=== PATIENT | male | born 1955 | race African-American/Black ===

== ENCOUNTER 2019-11-01 08:53 | Observation (INO) ==
[2019-11-01 09:57] LABS: Apearance,Urine CLEAR (Clear); Bilirubin,Urine Negative (Negative); Blood, Urine Negative (Negative); Glucose,Urine (UA) Negative (Negative); Hyaline Casts,Urine 1 /LPF (0-3); Ketones,Urine Negative (Negative); Mucus,Urine Occasional /LPF (Occasional); Nitrite,Urine Negative (Negative); Protein,Urine Negative; RBC,Urine 1 /HPF (0-4); Urine Color Yellow (Yellow); WBC,Urine <1 /HPF (0-6)
[2019-11-01 10:01] LABS: Barbiturates Screen,Urine Negative (Negative); Benzodiazepines Screen,Urine Negative (Negative); Cannabinoid Screen,Urine Negative (Negative); Opiate Screen,Urine Negative (Negative); Phencyclidine Screen,Urine Negative (Negative)
[2019-11-01 10:15] LABS: Basophils % 0.6 % (0.0-0.8); Eosinophils # 0.1 10*3/uL (0.0-0.87); Eosinophils % 0.8 % (0.00-10.9); Hematocrit 37.6 VOL% (42.0-52.0); Hemoglobin 11.6 GM/DL (14.0-18.0); Immature Granulocytes % 0.5 %; Immature Granulocytes Absolute 0.03 #; Lymphocytes # 1.4 10*3/uL (1.4-4.0); Lymphocytes % 21.3 % (21.2-54.2); Mean Corpuscular HGB Conc 30.9 GM/DL (32-36); Mean Corpuscular Volume 87.6 FL (87-102); Mean Platelet Volume 10.5 FL (9.6-12.0); Monocytes % 9.1 % (1.7-12.7); Neutrophils % 67.7 % (38.7-73.9); Platelet Count 283 T/CUMM (130-400); Red Blood Count 4.29 MC/CUMM (3.8-5.5); Red Cell Distribution Width 16.9 % (9.3-17.3); White Blood Count 6.6 T/CUMM (4-12)
[2019-11-01 10:30] LABS: Alanine Aminotransferase 19 U/L (16-61); Albumin 3.6 G/DL (3.4-5.0); Alkaline Phosphatase 82 U/L (45-117); Aspartate Amino Transferase 17 U/L (0-37); Bilirubin,Total < 0.39 MG/DL (0.2-1.0); Blood Urea Nitrogen 29 MG/DL (7-18); Calcium 9.3 MG/DL (8.5-10.1); Estimated Glom Filtration Rate 80 ML/MIN; Glucose 82 MG/DL (74-106); Osmolality,Calculated 277.8 MOS/KG (273-304); Total Protein 7.7 G/DL (6.4-8.3)
[2019-11-01] MEDS ORDERED: LEVOFLOXACIN INJ 750 MG in PREMIX 1 EACH IV STA (10:58)
[2019-11-01] MEDS ORDERED: hydrALAZINE 20 MG/1 ML VIAL IV PRN (12:06)
[2019-11-01] MEDS ORDERED: guaiFENesin/DM ER 600-30 MG TABLET PO PRN (12:06)
[2019-11-01] MEDS ORDERED: ONDANSETRON 4 MG/2 ML VIAL IV PRN (12:06)
[2019-11-01] MEDS ORDERED: ACETAMINOPHEN 325 MG TABLET PO PRN (12:06)
[2019-11-01] MEDS ORDERED: LACTULOSE 20 GM/30 ML UDCUP PO PRN (12:06)
[2019-11-01 12:34] LABS: Risk Ratio 1.92; VLDL CHOLESTEROL 17.8 MG/DL
[2019-11-01 12:41] LABS: Free T4 (Free Thyroxine) 1.06 NG/DL (0.76-1.46)
[2019-11-01] MEDS: ALBUTEROL 2.5 MG/3 ML NEB RESP TX SCH ×2 (13:19→19:32)
[2019-11-01] MEDS: ENOXAPARIN 40 MG/0.4 ML SYRINGE SUBCUT SCH (13:26)
[2019-11-02] MEDS: ALBUTEROL 2.5 MG/3 ML NEB RESP TX SCH ×4 (00:23→20:40)
[2019-11-02 06:11] LABS: Basophils % 0.7 % (0.0-0.8); Eosinophils # 0.1 10*3/uL (0.0-0.87); Eosinophils % 1.1 % (0.00-10.9); Hematocrit 34.1 VOL% (42.0-52.0); Hemoglobin 10.7 GM/DL (14.0-18.0); Immature Granulocytes % 0.5 %; Immature Granulocytes Absolute 0.03 #; Lymphocytes # 1.6 10*3/uL (1.4-4.0); Lymphocytes % 28.4 % (21.2-54.2); Mean Corpuscular HGB Conc 31.4 GM/DL (32-36); Mean Corpuscular Volume 85.9 FL (87-102); Mean Platelet Volume 11.1 FL (9.6-12.0); Neutrophils % 59.3 % (38.7-73.9); Platelet Count 288 T/CUMM (130-400); Red Blood Count 3.97 MC/CUMM (3.8-5.5); Red Cell Distribution Width 16.8 % (9.3-17.3); White Blood Count 5.5 T/CUMM (4-12)
[2019-11-02 06:34] LABS: Calcium 9.1 MG/DL (8.5-10.1); Osmolality,Calculated 279.8 MOS/KG (273-304)
[2019-11-02] MEDS: SODIUM CHLORIDE 0.9% 1,000 ML IV SCH ×2 (08:03→14:42)
[2019-11-02] MEDS: ENOXAPARIN 40 MG/0.4 ML SYRINGE SUBCUT SCH (14:42)
[2019-11-02] MEDS ORDERED: ATORVASTATIN 20 MG TABLET PO SCH (21:00)
[2019-11-03] MEDS: ALBUTEROL 2.5 MG/3 ML NEB RESP TX SCH ×3 (00:42→13:51)
[2019-11-03] MEDS: SODIUM CHLORIDE 0.9% 1,000 ML IV SCH (05:19)
[2019-11-03] MEDS ORDERED: ASPIRIN CHEW 81 MG TABLET PO SCH (09:00)
[2019-11-03 09:13] LABS: Basophils % 0.6 % (0.0-0.8); Eosinophils # 0.1 10*3/uL (0.0-0.87); Eosinophils % 1.1 % (0.00-10.9); Hematocrit 32.3 VOL% (42.0-52.0); Hemoglobin 9.8 GM/DL (14.0-18.0); Immature Granulocytes Absolute 0.06 #; Lymphocytes # 2.2 10*3/uL (1.4-4.0); Lymphocytes % 36.4 % (21.2-54.2); Mean Corpuscular HGB Conc 30.3 GM/DL (32-36); Mean Corpuscular Volume 88.7 FL (87-102); Mean Platelet Volume 10.6 FL (9.6-12.0); Monocytes % 11.9 % (1.7-12.7); Platelet Count 235 T/CUMM (130-400); Red Blood Count 3.64 MC/CUMM (3.8-5.5); Red Cell Distribution Width 16.9 % (9.3-17.3); White Blood Count 6.2 T/CUMM (4-12)
[2019-11-03] MEDS ORDERED: VANCOMYCIN INJ 1,000 MG in SODIUM CHLORIDE 0.9% 250 ML IV SCH (10:00)
[2019-11-03 12:13] VITALS: BP 123/52
[2019-11-03] MEDS: ENOXAPARIN 40 MG/0.4 ML SYRINGE SUBCUT SCH (12:51)
== END 2019-11-03 16:07 | disposition home or self-care (01) ==
LOC: N.EDINP 08:53 → N.ED 08:53 → SUATTDRO 12:06 → N.EDINP 14:07 → N.5E 14:21
PROVIDERS: ADMIT Internal Medicine; ATTEND Internal Medicine

== ENCOUNTER 2020-08-12 16:56 | Inpatient (IN) ==
[2020-08-12] MEDS ORDERED: SODIUM CHLORIDE 0.9% 1,000 ML IV STA (17:51)
[2020-08-12] MEDS ORDERED: PIPERACILLIN/TAZOBACTAM 3,375 MG in SODIUM CHLORIDE 0.9% 100 ML IV STA (18:40)
[2020-08-12 19:10] LABS: ABG Base Excess -6.3 MMOL/L (-2.5-2.5); ABG HCO3 19.3 MMOL/L (20-26); ABG Oxygen Saturation 98.7 % (95-100); ABG PCO2 35.7 MM HG (35-48); ABG PH 7.332 (7.35-7.45); ABG TCO2 16.9 MMOL/L (23-27); Allen Test Positive; Pt O2 Delivery Device Room Air
[2020-08-12 19:11] LABS: Basophils % 0.2 % (0.0-0.8); Hematocrit 39.2 VOL% (42.0-52.0); Hemoglobin 12.7 GM/DL (14.0-18.0); Immature Granulocytes % 0.5 %; Immature Granulocytes Absolute 0.03 #; Lymphocytes # 0.4 10*3/uL (1.4-4.0); Lymphocytes % 6.9 % (21.2-54.2); Mean Corpuscular HGB Conc 32.4 GM/DL (32-36); Mean Corpuscular Volume 80.7 FL (87-102); Monocytes % 3.7 % (1.7-12.7); NRBC # 0.12 10*3/uL; Neutrophils % 88.7 % (38.7-73.9); Platelet Count 97 T/CUMM (130-400); Red Blood Count 4.86 MC/CUMM (3.8-5.5); Red Cell Distribution Width 19.6 % (9.3-17.3); White Blood Count 6.2 T/CUMM (4-12)
[2020-08-12 19:22] LABS: INR 1.3; PT Patient Result 13.5 SECS (9.8-11.9)
[2020-08-12 19:35] LABS: Lymphocytes 11 % (20-55); Nucleated Red Blood Cells 1 (0-5); Segmented Neutrophils 85 % (50-85); Smudge Cells Few; Total Cells Counted 100
[2020-08-12 19:36] LABS: Albumin 2.6 G/DL (3.4-5.0); Bilirubin,Total 0.4 MG/DL (0.2-1.0); Calcium 8.7 MG/DL (8.5-10.1); Total Protein 6.5 G/DL (6.4-8.3)
[2020-08-12 19:37] LABS: Anisocytosis 1+; Burr Cells Few; Ovalocytes Few; Schistocytes Few
[2020-08-12 19:38] LABS: Microcytosis 1+; Platelet Estimate Decreased
[2020-08-12 19:47] LABS: CKMB % 6.5 %; Troponin I < 0.015 NG/ML (0.00-0.045)
[2020-08-12] MEDS ORDERED: DEXTROSE 50% 25 GM/50 ML VIAL IV STA (19:53)
[2020-08-12] MEDS ORDERED: DEXTROSE 50% 25 GM/50 ML SYRINGE IV ONE (19:57)
[2020-08-12 20:01] LABS: Bilirubin,Urine Negative (Negative); Blood, Urine Small mg/dL (Negative); Glucose,Urine (UA) Negative (Negative); Hyaline Casts,Urine 3 /LPF (0-3); Ketones,Urine Negative (Negative); Mucus,Urine Occasional /LPF (Occasional); Nitrite,Urine Negative (Negative); Protein,Urine Negative; RBC,Urine <1 /HPF (0-4); Squamous Epithelial Cell,Urine Occasional /HPF (0-10); Urine Appearance Slightly Hazy (Clear); Urine Color Yellow (Yellow); Urine Specific Gravity 1.015 (1.001-1.035); Urine Urobilinogen < 2.0 EU/DL (0.2-1.0); WBC,Urine <1 /HPF (0-6)
[2020-08-12 20:29] LABS: Barbiturates Screen,Urine Negative (Negative); Benzodiazepines Screen,Urine Negative (Negative); Cannabinoid Screen,Urine Negative (Negative); Opiate Screen,Urine Negative (Negative); Phencyclidine Screen,Urine Negative (Negative)
[2020-08-12] MEDS ORDERED: ACETAMINOPHEN 325 MG TABLET PO PRN (20:56)
[2020-08-12] MEDS ORDERED: ONDANSETRON 4 MG/2 ML VIAL IV PRN (20:56)
[2020-08-12] MEDS ORDERED: GLUCAGON 1 MG VIAL IM PRN (20:56)
[2020-08-12] MEDS: SODIUM CHLORIDE 0.9% 1,000 ML IV SCH ×2 (21:05→23:43)
[2020-08-13 06:19] LABS: Basophils # 0.1 10*3/uL (0.0-0.2); Basophils % 0.7 % (0.0-0.8); Hematocrit 34.8 VOL% (42.0-52.0); Hemoglobin 11.7 GM/DL (14.0-18.0); Immature Granulocytes % 0.1 %; Immature Granulocytes Absolute 0.01 #; Lymphocytes # 0.2 10*3/uL (1.4-4.0); Mean Corpuscular HGB Conc 33.6 GM/DL (32-36); Mean Corpuscular Volume 78.7 FL (87-102); Monocytes % 6.1 % (1.7-12.7); NRBC # 0.07 10*3/uL; Neutrophils % 91.1 % (38.7-73.9); Platelet Count 80 T/CUMM (130-400); Red Blood Count 4.42 MC/CUMM (3.8-5.5); Red Cell Distribution Width 19.3 % (9.3-17.3); White Blood Count 8.5 T/CUMM (4-12)
[2020-08-13 06:49] LABS: Albumin 2.4 G/DL (3.4-5.0); Calcium 8.3 MG/DL (8.5-10.1); Osmolality,Calculated 316.7 MOS/KG (273-304); Total Protein 6.1 G/DL (6.4-8.3)
[2020-08-13 07:17] LABS: Band Neutrophils 6 % (0-10); Hypochromasia 1+; Lymphocytes 2 % (20-55); Nucleated Red Blood Cells 2 (0-5); Segmented Neutrophils 88 % (50-85); Total Cells Counted 100
[2020-08-13 07:18] LABS: Acanthocytes Few; Microcytosis 1+; Ovalocytes Few; Target Cells Slight
[2020-08-13 07:19] LABS: Platelet Estimate Decreased
[2020-08-13] MEDS ORDERED: SODIUM POLYSTYRENE SULFATE 15 GM/60 ML BOTTLE PO ONE (07:26)
[2020-08-13] MEDS: SODIUM CHLORIDE 0.9% 1,000 ML IV SCH (10:12)
[2020-08-13] MEDS: DEXTROSE 50% 25 GM/50 ML VIAL IV PRN (10:12)
[2020-08-13 10:55] LABS: Hepatitis B Core IgM Quant 0.21 Index; Hepatitis B Surface Ag Quant < 0.10 Index; Hepatitis B Surface Ag Result Negative (Negative); Hepatitis C Virus Ab Quant 0.09 Index; Hepatitis C Virus Ab Result Negative (Negative)
[2020-08-13] MEDS ORDERED: TUBERCULIN SKIN TEST 0.1 ML SYRINGE INTRADERM ONE (12:08)
[2020-08-13] MEDS: HEPARIN 5,000 UNIT/1 ML VIAL SUBCUT SCH ×2 (17:43→21:13)
[2020-08-13] MEDS: cefTRIAXone 1,000 MG in SYRINGE 1 EACH IV SCH (17:45)
[2020-08-13] MEDS: SODIUM BICARB INJ 50 MEQ in DEXTROSE 5% NACL 0.22% 1,000 ML IV SCH (17:58)
[2020-08-13] MEDS ORDERED: FOLIC ACID 0.4 MG TABLET PO SCH (21:00)
[2020-08-13] MEDS: ASCORBIC ACID 500 MG TABLET NG SCH (21:12)
[2020-08-13] MEDS: FOLIC ACID 0.4 MG TABLET NG SCH (21:12)
[2020-08-14] MEDS: HEPARIN 5,000 UNIT/1 ML VIAL SUBCUT SCH ×3 (05:33→21:10)
[2020-08-14 05:59] LABS: CKMB % 1.2 %
[2020-08-14] MEDS: SODIUM BICARB INJ 50 MEQ in DEXTROSE 5% NACL 0.22% 1,000 ML IV SCH (06:30)
[2020-08-14 07:20] LABS: Alanine Aminotransferase 77 U/L (16-61); Alkaline Phosphatase 97 U/L (45-117); Aspartate Amino Transferase 288 U/L (0-37); Bilirubin,Total < 0.39 MG/DL (0.2-1.0); Blood Urea Nitrogen 79 MG/DL (7-18); Calcium 8.1 MG/DL (8.5-10.1); Estimated Glom Filtration Rate 33 ML/MIN; Glucose 130 MG/DL (74-106); Osmolality,Calculated 324.9 MOS/KG (273-304); Total Protein 5.9 G/DL (6.4-8.3)
[2020-08-14 08:00] LABS: Basophils % 0.1 % (0.0-0.8); Hematocrit 32.6 VOL% (42.0-52.0); Hemoglobin 10.9 GM/DL (14.0-18.0); Immature Granulocytes % 0.4 %; Immature Granulocytes Absolute 0.03 #; Lymphocytes # 0.5 10*3/uL (1.4-4.0); Lymphocytes % 6.4 % (21.2-54.2); Mean Corpuscular HGB Conc 33.4 GM/DL (32-36); Mean Corpuscular Volume 79.3 FL (87-102); Monocytes % 3.6 % (1.7-12.7); NRBC # 0.09 10*3/uL; Neutrophils % 89.5 % (38.7-73.9); Red Blood Count 4.11 MC/CUMM (3.8-5.5); Red Cell Distribution Width 19.6 % (9.3-17.3); White Blood Count 7.3 T/CUMM (4-12)
[2020-08-14 08:02] LABS: Platelet Count 64 T/CUMM (130-400)
[2020-08-14 08:50] LABS: Band Neutrophils 9 % (0-10); Lymphocytes 7 % (20-55); Nucleated Red Blood Cells 2 (0-5); Segmented Neutrophils 81 % (50-85); Total Cells Counted 100
[2020-08-14 08:51] LABS: Hypochromasia 2+; Microcytosis 1+; Ovalocytes Few
[2020-08-14 08:53] LABS: Acanthocytes Few
[2020-08-14 08:54] LABS: Platelet Estimate Decreased
[2020-08-14] MEDS: MULTIVITAMIN LIQUID (CENTRUM) 60 ML BOTTLE PO SCH (09:56)
[2020-08-14] MEDS: FOLIC ACID 0.4 MG TABLET NG SCH ×2 (09:56→21:18)
[2020-08-14] MEDS: THIAMINE 200 MG/2 ML VIAL IV SCH (09:56)
[2020-08-14] MEDS: ASCORBIC ACID 500 MG TABLET NG SCH ×2 (09:56→21:10)
[2020-08-14] MEDS: cefTRIAXone 1,000 MG in SYRINGE 1 EACH IV SCH (12:51)
[2020-08-15] MEDS: HEPARIN 5,000 UNIT/1 ML VIAL SUBCUT SCH (05:18)
[2020-08-15 06:01] LABS: Basophils % 0.2 % (0.0-0.8); Hematocrit 32.7 VOL% (42.0-52.0); Hemoglobin 10.5 GM/DL (14.0-18.0); Immature Granulocytes % 0.2 %; Immature Granulocytes Absolute 0.01 #; Lymphocytes # 0.6 10*3/uL (1.4-4.0); Lymphocytes % 11.9 % (21.2-54.2); Mean Corpuscular HGB Conc 32.1 GM/DL (32-36); Mean Corpuscular Volume 81.8 FL (87-102); Monocytes % 4.5 % (1.7-12.7); Neutrophils % 83.2 % (38.7-73.9); Red Cell Distribution Width 19.5 % (9.3-17.3); White Blood Count 5.4 T/CUMM (4-12)
[2020-08-15 06:06] LABS: Platelet Count 64 T/CUMM (130-400)
[2020-08-15 06:17] LABS: Albumin 1.8 G/DL (3.4-5.0); Bilirubin,Total 0.5 MG/DL (0.2-1.0); Calcium 8.3 MG/DL (8.5-10.1); Osmolality,Calculated 310.1 MOS/KG (273-304); Total Protein 5.8 G/DL (6.4-8.3)
[2020-08-15 06:35] LABS: Band Neutrophils 4 % (0-10); Hypochromasia Slight; Lymphocytes 7 % (20-55); Microcytosis Slight; Platelet Estimate Decreased; Segmented Neutrophils 87 % (50-85); Total Cells Counted 100
[2020-08-15 06:36] LABS: CKMB % 0.9 %
[2020-08-15] MEDS ORDERED: POTASSIUM CHLORIDE 20 MEQ/15 ML UDCUP NG ONE (07:18)
[2020-08-15] MEDS: SODIUM BICARB INJ 50 MEQ in DEXTROSE 5% NACL 0.22% 1,000 ML IV SCH ×2 (08:10→13:57)
[2020-08-15] MEDS: FOLIC ACID 0.4 MG TABLET NG SCH ×2 (11:08→23:18)
[2020-08-15] MEDS: ASCORBIC ACID 500 MG TABLET NG SCH ×2 (11:08→23:18)
[2020-08-15] MEDS: THIAMINE 200 MG/2 ML VIAL IV SCH (11:08)
[2020-08-15] MEDS: cefTRIAXone 1,000 MG in SYRINGE 1 EACH IV SCH (13:36)
[2020-08-15] MEDS: MULTIVITAMIN LIQUID (CENTRUM) 60 ML BOTTLE PO SCH (16:33)
[2020-08-16] MEDS: DEXTROSE 50% 25 GM/50 ML VIAL IV PRN ×4 (01:43→18:59)
[2020-08-16 05:45] LABS: Basophils % 0.2 % (0.0-0.8); Hematocrit 31.8 VOL% (42.0-52.0); Hemoglobin 9.9 GM/DL (14.0-18.0); Immature Granulocytes % 0.5 %; Immature Granulocytes Absolute 0.03 #; Lymphocytes # 0.5 10*3/uL (1.4-4.0); Lymphocytes % 7.4 % (21.2-54.2); Mean Corpuscular HGB Conc 31.1 GM/DL (32-36); Mean Corpuscular Volume 83.7 FL (87-102); NRBC # 0.02 10*3/uL; Neutrophils % 87.9 % (38.7-73.9); Red Cell Distribution Width 19.2 % (9.3-17.3); White Blood Count 6.5 T/CUMM (4-12)
[2020-08-16 05:50] LABS: Platelet Count 53 T/CUMM (130-400)
[2020-08-16 06:12] LABS: Band Neutrophils 1 % (0-10); Hypochromasia 1+; Lymphocytes 3 % (20-55); Microcytosis Slight; Ovalocytes Slight; Platelet Estimate Decreased; Segmented Neutrophils 94 % (50-85); Total Cells Counted 100
[2020-08-16 06:27] LABS: CKMB % 0.7 %
[2020-08-16 06:35] LABS: Albumin 1.8 G/DL (3.4-5.0); Bilirubin,Total 1.2 MG/DL (0.2-1.0); Calcium 8.8 MG/DL (8.5-10.1); Osmolality,Calculated 303.1 MOS/KG (273-304); Total Protein 6.2 G/DL (6.4-8.3)
[2020-08-16] MEDS: ASCORBIC ACID 500 MG TABLET NG SCH ×2 (11:10→20:57)
[2020-08-16] MEDS: THIAMINE 200 MG/2 ML VIAL IV SCH (11:11)
[2020-08-16] MEDS: MULTIVITAMIN LIQUID (CENTRUM) 60 ML BOTTLE PO SCH (11:11)
[2020-08-16] MEDS: FOLIC ACID 0.4 MG TABLET NG SCH ×2 (11:11→20:57)
[2020-08-16] MEDS: SODIUM BICARB INJ 50 MEQ in DEXTROSE 5% NACL 0.22% 1,000 ML IV SCH (11:17)
[2020-08-16] MEDS ORDERED: SODIUM CHLORIDE 0.9% 500 ML IV ONE (11:58)
[2020-08-16] MEDS: cefTRIAXone 1,000 MG in SYRINGE 1 EACH IV SCH (13:35)
[2020-08-16] MEDS ORDERED: ALBUMIN 5% 12.5 GM in PREMIX 1 EACH IV ONE (14:00)
[2020-08-16 14:13] LABS: ABG Base Excess 7.5 MMOL/L (-2.5-2.5); ABG HCO3 31.3 MMOL/L (20-26); ABG Oxygen Saturation 97.6 % (95-100); ABG PCO2 44.1 MM HG (35-48); ABG PH 7.468 (7.35-7.45); ABG TCO2 29.9 MMOL/L (23-27); Pt O2 Delivery Device Room Air
[2020-08-16] MEDS: MEGESTROL 400 MG/10 ML UDCUP PO SCH (20:57)
[2020-08-17 05:40] LABS: Basophils % 0.2 % (0.0-0.8); Eosinophils % 0.2 % (0.00-10.9); Hematocrit 28.2 VOL% (42.0-52.0); Hemoglobin 8.8 GM/DL (14.0-18.0); Immature Granulocytes % 0.2 %; Immature Granulocytes Absolute 0.01 #; Lymphocytes # 0.4 10*3/uL (1.4-4.0); Lymphocytes % 7.9 % (21.2-54.2); Mean Corpuscular HGB Conc 31.2 GM/DL (32-36); Mean Corpuscular Volume 84.2 FL (87-102); Monocytes % 0.6 % (1.7-12.7); Neutrophils % 90.9 % (38.7-73.9); Platelet Count 74 T/CUMM (130-400); Red Blood Count 3.35 MC/CUMM (3.8-5.5); Red Cell Distribution Width 19.4 % (9.3-17.3); White Blood Count 5.3 T/CUMM (4-12)
[2020-08-17] MEDS: DEXTROSE 50% 25 GM/50 ML VIAL IV PRN (05:43)
[2020-08-17 06:04] LABS: Band Neutrophils 5 % (0-10); Lymphocytes 7 % (20-55); Metamyelocytes 1 %; Segmented Neutrophils 86 % (50-85); Total Cells Counted 100
[2020-08-17 06:05] LABS: Hypochromasia 2+; Microcytosis 1+; Ovalocytes Slight
[2020-08-17 06:06] LABS: Platelet Estimate Decreased
[2020-08-17 06:07] LABS: Calcium 8.5 MG/DL (8.5-10.1); Osmolality,Calculated 298.3 MOS/KG (273-304)
[2020-08-17 06:21] LABS: CKMB % 0.6 %
[2020-08-17 06:59] LABS: Albumin 1.9 G/DL (3.4-5.0); Bilirubin,Total 2.2 MG/DL (0.2-1.0); Calcium 8.4 MG/DL (8.5-10.1); Osmolality,Calculated 298.3 MOS/KG (273-304); Total Protein 5.9 G/DL (6.4-8.3)
[2020-08-17 09:01] LABS: % Iron Saturation 13.2 % (18-50)
[2020-08-17] MEDS ORDERED: TUBERCULIN SKIN TEST 0.1 ML SYRINGE INTRADERM ONE (09:14)
[2020-08-17 09:29] LABS: Folate 11.5 NG/ML (5.4-24.0)
[2020-08-17] MEDS: THIAMINE 200 MG/2 ML VIAL IV SCH (09:30)
[2020-08-17] MEDS: ASCORBIC ACID 500 MG TABLET NG SCH ×2 (09:30→20:30)
[2020-08-17] MEDS: FOLIC ACID 0.4 MG TABLET NG SCH ×2 (09:30→20:30)
[2020-08-17] MEDS: MEGESTROL 400 MG/10 ML UDCUP PO SCH ×2 (09:30→20:30)
[2020-08-17] MEDS: MULTIVITAMIN LIQUID (CENTRUM) 60 ML BOTTLE PO SCH (09:31)
[2020-08-17] MEDS: cefTRIAXone 1,000 MG in SYRINGE 1 EACH IV SCH (12:20)
[2020-08-17] MEDS ORDERED: VANCOMYCIN INJ 1,000 MG in SODIUM CHLORIDE 0.9% 250 ML IV SCH (13:00)
[2020-08-17] MEDS ORDERED: FERRIC GLUCONATE COMPLEX 125 MG in SODIUM CHLORIDE 0.9% 100 ML IV SCH (14:00)
[2020-08-17] MEDS: VANCOMYCIN INJ 1,000 MG in SODIUM CHLORIDE 0.9% 250 ML IV SCH (14:27)
[2020-08-17] MEDS: SODIUM BICARB INJ 50 MEQ in DEXTROSE 5% NACL 0.22% 1,000 ML IV SCH (14:27)
[2020-08-17] MEDS: FERRIC GLUCONATE COMPLEX 125 MG in SODIUM CHLORIDE 0.9% 100 ML IV SCH (15:52)
[2020-08-17] MEDS: PIPERACILLIN/TAZOBACTAM 3,375 MG in SODIUM CHLORIDE 0.9% 100 ML IV SCH ×2 (16:03→23:02)
[2020-08-17] MEDS: POTASSIUM PHOS/SOD PHOS 250 MG TABLET PO SCH ×2 (17:49→20:34)
[2020-08-18] MEDS: VANCOMYCIN INJ 1,000 MG in SODIUM CHLORIDE 0.9% 250 ML IV SCH ×2 (03:20→19:02)
[2020-08-18] MEDS: PIPERACILLIN/TAZOBACTAM 3,375 MG in SODIUM CHLORIDE 0.9% 100 ML IV SCH ×2 (06:04→20:32)
[2020-08-18 07:11] LABS: Basophils % 0.1 % (0.0-0.8); Eosinophils % 0.1 % (0.00-10.9); Hematocrit 24.8 VOL% (42.0-52.0); Hemoglobin 7.8 GM/DL (14.0-18.0); Immature Granulocytes % 0.6 %; Immature Granulocytes Absolute 0.06 #; Lymphocytes # 0.7 10*3/uL (1.4-4.0); Mean Corpuscular HGB Conc 31.5 GM/DL (32-36); Mean Corpuscular Volume 83.8 FL (87-102); Monocytes % 4.6 % (1.7-12.7); Neutrophils % 87.6 % (38.7-73.9); Red Blood Count 2.96 MC/CUMM (3.8-5.5); Red Cell Distribution Width 18.8 % (9.3-17.3); White Blood Count 10.4 T/CUMM (4-12)
[2020-08-18 07:15] LABS: Platelet Count 72 T/CUMM (130-400)
[2020-08-18 07:29] LABS: Albumin 1.7 G/DL (3.4-5.0); Bilirubin,Total 0.5 MG/DL (0.2-1.0); Calcium 8.1 MG/DL (8.5-10.1); Osmolality,Calculated 290.7 MOS/KG (273-304); Total Protein 5.5 G/DL (6.4-8.3)
[2020-08-18 07:36] LABS: Atypical Lymphocytes Few; Hypochromasia 2+; Lymphocytes 8 % (20-55); Microcytosis 1+; Platelet Estimate Decreased; Segmented Neutrophils 86 % (50-85); Total Cells Counted 100
[2020-08-18 07:52] LABS: CKMB % 0.5 %
[2020-08-18] MEDS ORDERED: SODIUM CHLORIDE 0.9% 1,000 ML IV PRN (08:40)
[2020-08-18] MEDS ORDERED: BUPIVACAINE MPF 0.25% 30 ML VIAL ONE (09:08)
[2020-08-18] MEDS ORDERED: LIDOCAINE 1% 20 ML VIAL ONE (09:08)
[2020-08-18] MEDS ORDERED: fentaNYL 100 MCG/2 ML VIAL ONE (09:09)
[2020-08-18] MEDS ORDERED: LIDOCAINE 2% 5 ML VIAL ONE (09:10)
[2020-08-18] MEDS ORDERED: propofoL 200 MG/20 ML VIAL IV ONE (09:10)
[2020-08-18] MEDS ORDERED: DEXMEDETOMIDINE 200 MCG/2 ML VIAL ONE (09:29)
[2020-08-18] MEDS ORDERED: PHENYLEPHRINE 1 MG/10 ML SYRINGE IV ONE (09:44)
[2020-08-18] MEDS ORDERED: SEVOFLURANE 1 UNIT/15 MINUTE INH ONE ×3 (09:45→10:02)
[2020-08-18] MEDS ORDERED: SILVER SULFADIAZINE 1% CREAM 400 GM JAR TOP ONE (09:57)
[2020-08-18] MEDS: MULTIVITAMIN LIQUID (CENTRUM) 60 ML BOTTLE PO SCH (12:30)
[2020-08-18] MEDS: POTASSIUM PHOS/SOD PHOS 250 MG TABLET PO SCH ×4 (12:30→20:33)
[2020-08-18] MEDS: FOLIC ACID 0.4 MG TABLET NG SCH ×2 (12:30→20:33)
[2020-08-18] MEDS: MEGESTROL 400 MG/10 ML UDCUP PO SCH ×2 (12:31→20:34)
[2020-08-18] MEDS: ASCORBIC ACID 500 MG TABLET NG SCH ×2 (12:31→20:33)
[2020-08-18] MEDS: FERRIC GLUCONATE COMPLEX 125 MG in SODIUM CHLORIDE 0.9% 100 ML IV SCH (18:08)
[2020-08-18] MEDS: THIAMINE 200 MG/2 ML VIAL IV SCH (18:09)
[2020-08-18 19:06] LABS: Hematocrit 36.6 VOL% (42.0-52.0); Hemoglobin 11.8 GM/DL (14.0-18.0)
[2020-08-18 19:41] LABS: HIT Interpretation Negative (Negative)
[2020-08-19] MEDS: PIPERACILLIN/TAZOBACTAM 3,375 MG in SODIUM CHLORIDE 0.9% 100 ML IV SCH ×3 (04:44→22:18)
[2020-08-19 05:21] LABS: Basophils % 0.2 % (0.0-0.8); Eosinophils % 0.1 % (0.00-10.9); Hematocrit 27.6 VOL% (42.0-52.0); Immature Granulocytes % 1.9 %; Immature Granulocytes Absolute 0.32 #; Lymphocytes # 0.6 10*3/uL (1.4-4.0); Lymphocytes % 3.6 % (21.2-54.2); Mean Corpuscular Volume 82.1 FL (87-102); Mean Platelet Volume 11.8 FL (9.6-12.0); Monocytes % 3.5 % (1.7-12.7); Neutrophils % 90.7 % (38.7-73.9); Red Blood Count 3.36 MC/CUMM (3.8-5.5)
[2020-08-19 05:26] LABS: Hemoglobin 9.1 GM/DL (14.0-18.0); White Blood Count 16.5 T/CUMM (4-12)
[2020-08-19 05:27] LABS: Platelet Count 101 T/CUMM (130-400)
[2020-08-19 05:44] LABS: Band Neutrophils 10 % (0-10); Hypochromasia Slight; Lymphocytes 1 % (20-55); Microcytosis Slight; Platelet Estimate Adequate; Segmented Neutrophils 89 % (50-85); Total Cells Counted 100
[2020-08-19 05:45] LABS: Albumin 1.6 G/DL (3.4-5.0); Bilirubin,Total 0.6 MG/DL (0.2-1.0); Calcium 7.7 MG/DL (8.5-10.1); Osmolality,Calculated 295.4 MOS/KG (273-304); Total Protein 5.3 G/DL (6.4-8.3)
[2020-08-19] MEDS ORDERED: POTASSIUM CHLORIDE 20 MEQ TABLET PO ONE ×2 (07:45→13:00)
[2020-08-19] MEDS ORDERED: FERRIC GLUCONATE COMPLEX 125 MG in SODIUM CHLORIDE 0.9% 100 ML IV SCH (09:00)
[2020-08-19] MEDS: ASCORBIC ACID 500 MG TABLET NG SCH ×2 (09:37→20:43)
[2020-08-19] MEDS: MEGESTROL 400 MG/10 ML UDCUP PO SCH ×2 (09:37→20:43)
[2020-08-19] MEDS: FOLIC ACID 0.4 MG TABLET NG SCH ×2 (09:38→20:43)
[2020-08-19] MEDS: MULTIVITAMIN LIQUID (CENTRUM) 60 ML BOTTLE PO SCH (09:38)
[2020-08-19] MEDS: VANCOMYCIN INJ 1,000 MG in SODIUM CHLORIDE 0.9% 250 ML IV SCH ×2 (09:38→20:42)
[2020-08-19] MEDS: POTASSIUM PHOS/SOD PHOS 250 MG TABLET PO SCH ×4 (09:38→20:43)
[2020-08-19] MEDS: THIAMINE 200 MG/2 ML VIAL IV SCH (09:39)
[2020-08-19] MEDS: FERRIC GLUCONATE COMPLEX 125 MG in SODIUM CHLORIDE 0.9% 100 ML IV SCH (11:52)
[2020-08-20 04:53] LABS: Basophils % 0.1 % (0.0-0.8); Eosinophils % 0.1 % (0.00-10.9); Hematocrit 26.7 VOL% (42.0-52.0); Hemoglobin 8.9 GM/DL (14.0-18.0); Immature Granulocytes % 0.7 %; Immature Granulocytes Absolute 0.08 #; Lymphocytes # 0.6 10*3/uL (1.4-4.0); Lymphocytes % 5.8 % (21.2-54.2); Mean Corpuscular HGB Conc 33.3 GM/DL (32-36); Mean Corpuscular Volume 82.4 FL (87-102); Mean Platelet Volume 11.9 FL (9.6-12.0); Monocytes % 5.3 % (1.7-12.7); Platelet Count 134 T/CUMM (130-400); Red Blood Count 3.24 MC/CUMM (3.8-5.5); Red Cell Distribution Width 17.1 % (9.3-17.3); White Blood Count 10.7 T/CUMM (4-12)
[2020-08-20 05:14] LABS: Albumin 1.5 G/DL (3.4-5.0); Bilirubin,Total 0.5 MG/DL (0.2-1.0); Calcium 7.5 MG/DL (8.5-10.1); Osmolality,Calculated 296.4 MOS/KG (273-304); Total Protein 5.4 G/DL (6.4-8.3)
[2020-08-20 05:20] LABS: Band Neutrophils 7 % (0-10); Hypochromasia 1+; Lymphocytes 4 % (20-55); Promyelocytes 1 %; Segmented Neutrophils 85 % (50-85); Total Cells Counted 100
[2020-08-20 05:21] LABS: Microcytosis 1+; Ovalocytes Slight; Target Cells Slight
[2020-08-20] MEDS: PIPERACILLIN/TAZOBACTAM 3,375 MG in SODIUM CHLORIDE 0.9% 100 ML IV SCH ×3 (05:32→22:55)
[2020-08-20] MEDS: VANCOMYCIN INJ 1,000 MG in SODIUM CHLORIDE 0.9% 250 ML IV SCH ×2 (09:58→21:40)
[2020-08-20] MEDS: FOLIC ACID 0.4 MG TABLET NG SCH ×2 (09:59→21:39)
[2020-08-20] MEDS: THIAMINE 200 MG/2 ML VIAL IV SCH (09:59)
[2020-08-20] MEDS: POTASSIUM PHOS/SOD PHOS 250 MG TABLET PO SCH ×4 (09:59→21:39)
[2020-08-20] MEDS: ASCORBIC ACID 500 MG TABLET NG SCH ×2 (09:59→21:39)
[2020-08-20] MEDS: MEGESTROL 400 MG/10 ML UDCUP PO SCH ×2 (09:59→21:39)
[2020-08-20] MEDS: POTASSIUM CHLORIDE INJ 40 MEQ in DEXTROSE 5% NACL 0.22% 1,000 ML IV SCH (12:28)
[2020-08-20] MEDS: FERRIC GLUCONATE COMPLEX 125 MG in SODIUM CHLORIDE 0.9% 100 ML IV SCH (12:30)
[2020-08-20] MEDS: MULTIVITAMIN LIQUID (CENTRUM) 60 ML BOTTLE PO SCH (15:43)
[2020-08-21] MEDS: PIPERACILLIN/TAZOBACTAM 3,375 MG in SODIUM CHLORIDE 0.9% 100 ML IV SCH ×3 (05:33→21:44)
[2020-08-21] MEDS: POTASSIUM CHLORIDE INJ 40 MEQ in DEXTROSE 5% NACL 0.22% 1,000 ML IV SCH ×2 (05:46→13:55)
[2020-08-21 06:28] LABS: Basophils % 0.2 % (0.0-0.8); Hematocrit 24.5 VOL% (42.0-52.0); Immature Granulocytes % 9.4 %; Immature Granulocytes Absolute 1.18 #; Lymphocytes # 0.5 10*3/uL (1.4-4.0); Mean Corpuscular HGB Conc 32.7 GM/DL (32-36); Mean Corpuscular Volume 82.5 FL (87-102); Monocytes % 3.4 % (1.7-12.7); Platelet Count 132 T/CUMM (130-400); Red Blood Count 2.97 MC/CUMM (3.8-5.5); Red Cell Distribution Width 17.3 % (9.3-17.3); White Blood Count 12.5 T/CUMM (4-12)
[2020-08-21 06:58] LABS: Albumin 1.4 G/DL (3.4-5.0); Bilirubin,Total 0.5 MG/DL (0.2-1.0); Calcium 7.4 MG/DL (8.5-10.1); Osmolality,Calculated 296.6 MOS/KG (273-304); Total Protein 5.2 G/DL (6.4-8.3)
[2020-08-21 07:20] LABS: Band Neutrophils 8 % (0-10); Eosinophils 1 % (0-10); Hypochromasia 1+; Lymphocytes 4 % (20-55); Metamyelocytes 2 %; Microcytosis 1+; Ovalocytes Slight; Segmented Neutrophils 79 % (50-85); Total Cells Counted 100
[2020-08-21 07:21] LABS: Platelet Estimate Adequate; Target Cells Slight
[2020-08-21] MEDS: MEGESTROL 400 MG/10 ML UDCUP PO SCH ×2 (08:05→20:32)
[2020-08-21] MEDS: THIAMINE 200 MG/2 ML VIAL IV SCH (08:05)
[2020-08-21] MEDS: MULTIVITAMIN LIQUID (CENTRUM) 60 ML BOTTLE PO SCH (08:05)
[2020-08-21] MEDS: FOLIC ACID 0.4 MG TABLET NG SCH ×2 (08:05→20:32)
[2020-08-21] MEDS: POTASSIUM PHOS/SOD PHOS 250 MG TABLET PO SCH ×4 (08:05→20:32)
[2020-08-21] MEDS: ASCORBIC ACID 500 MG TABLET NG SCH ×2 (08:06→20:32)
[2020-08-21] MEDS ORDERED: LIDOCAINE 2% 5 ML VIAL ONE (08:58)
[2020-08-21] MEDS ORDERED: ETOMIDATE 40 MG/20 ML VIAL IV ONE (08:58)
[2020-08-21] MEDS ORDERED: fentaNYL 100 MCG/2 ML VIAL ONE (08:58)
[2020-08-21] MEDS ORDERED: DEXMEDETOMIDINE 200 MCG/2 ML VIAL ONE (08:58)
[2020-08-21] MEDS ORDERED: SEVOFLURANE 1 UNIT/15 MINUTE INH ONE ×7 (08:58→10:47)
[2020-08-21] MEDS ORDERED: DEXAMETHASONE 4 MG/1 ML VIAL ONE ×2 (10:02→11:05)
[2020-08-21] MEDS ORDERED: ONDANSETRON 4 MG/2 ML VIAL ONE (10:02)
[2020-08-21] MEDS ORDERED: KETOROLAC 30 MG/1 ML VIAL ONE (10:14)
[2020-08-21] MEDS ORDERED: ROPIVACAINE 0.5% 30 ML VIAL ONE (11:05)
[2020-08-21] MEDS ORDERED: LIDOCAINE 50 MG/5 ML SYRINGE ONE (11:05)
[2020-08-21] MEDS: FERRIC GLUCONATE COMPLEX 125 MG in SODIUM CHLORIDE 0.9% 100 ML IV SCH (12:17)
[2020-08-21 15:18] LABS: Hemoglobin 7.4 GM/DL (14.0-18.0)
[2020-08-21] MEDS: VANCOMYCIN INJ 1,000 MG in SODIUM CHLORIDE 0.9% 250 ML IV SCH (18:34)
[2020-08-22] MEDS: POTASSIUM CHLORIDE INJ 40 MEQ in DEXTROSE 5% NACL 0.22% 1,000 ML IV SCH ×2 (05:17→18:07)
[2020-08-22] MEDS: PIPERACILLIN/TAZOBACTAM 3,375 MG in SODIUM CHLORIDE 0.9% 100 ML IV SCH ×3 (05:30→21:33)
[2020-08-22 05:49] LABS: Basophils % 0.1 % (0.0-0.8); Hematocrit 19.8 VOL% (42.0-52.0); Immature Granulocytes % 0.5 %; Immature Granulocytes Absolute 0.04 #; Lymphocytes % 12.5 % (21.2-54.2); Mean Corpuscular HGB Conc 31.8 GM/DL (32-36); Mean Corpuscular Volume 84.6 FL (87-102); Mean Platelet Volume 12.4 FL (9.6-12.0); Monocytes % 5.2 % (1.7-12.7); Neutrophils % 81.7 % (38.7-73.9); Platelet Count 167 T/CUMM (130-400); Red Cell Distribution Width 17.6 % (9.3-17.3)
[2020-08-22 05:59] LABS: White Blood Count 8.2 T/CUMM (4-12)
[2020-08-22 06:00] LABS: Hemoglobin 6.3 GM/DL (14.0-18.0); Red Blood Count 2.34 MC/CUMM (3.8-5.5)
[2020-08-22] MEDS ORDERED: SODIUM CHLORIDE 0.9% 1,000 ML IV PRN (06:10)
[2020-08-22 06:13] LABS: Albumin 1.3 G/DL (3.4-5.0); Bilirubin,Total 0.7 MG/DL (0.2-1.0); Calcium 7.2 MG/DL (8.5-10.1); Osmolality,Calculated 288.1 MOS/KG (273-304); Total Protein 4.9 G/DL (6.4-8.3)
[2020-08-22 07:43] LABS: Band Neutrophils 35 % (0-10); Lymphocytes 9 % (20-55); Platelet Estimate Normal; Segmented Neutrophils 52 % (50-85); Total Cells Counted 100
[2020-08-22 07:44] LABS: Anisocytosis 2+; Hypochromasia 1+; Macrocytosis Slight
[2020-08-22 07:45] LABS: Poikilocytosis Slight; Target Cells Few
[2020-08-22] MEDS: POTASSIUM PHOS/SOD PHOS 250 MG TABLET PO SCH ×4 (08:23→20:49)
[2020-08-22] MEDS: MULTIVITAMIN LIQUID (CENTRUM) 60 ML BOTTLE PO SCH (08:24)
[2020-08-22] MEDS: MEGESTROL 400 MG/10 ML UDCUP PO SCH ×2 (08:24→20:49)
[2020-08-22] MEDS: THIAMINE 200 MG/2 ML VIAL IV SCH (08:24)
[2020-08-22] MEDS: ASCORBIC ACID 500 MG TABLET NG SCH ×2 (08:24→20:49)
[2020-08-22] MEDS: FOLIC ACID 0.4 MG TABLET NG SCH ×2 (08:24→20:49)
[2020-08-22] MEDS: FERRIC GLUCONATE COMPLEX 125 MG in SODIUM CHLORIDE 0.9% 100 ML IV SCH (09:21)
[2020-08-22] MEDS ORDERED: POTASSIUM CHLORIDE 20 MEQ TABLET PO ONE (12:00)
[2020-08-22] MEDS: VANCOMYCIN INJ 1,000 MG in SODIUM CHLORIDE 0.9% 250 ML IV SCH (14:03)
[2020-08-22 20:05] LABS: Hematocrit 29.1 VOL% (42.0-52.0); Hemoglobin 9.3 GM/DL (14.0-18.0)
[2020-08-22 22:38] LABS: Hematocrit 24.9 VOL% (42.0-52.0); Hemoglobin 8.5 GM/DL (14.0-18.0)
[2020-08-23] MEDS: POTASSIUM CHLORIDE INJ 40 MEQ in DEXTROSE 5% NACL 0.22% 1,000 ML IV SCH (05:00)
[2020-08-23] MEDS: VANCOMYCIN INJ 1,000 MG in SODIUM CHLORIDE 0.9% 250 ML IV SCH (05:20)
[2020-08-23 05:57] LABS: Eosinophils % 0.3 % (0.00-10.9); Hematocrit 24.8 VOL% (42.0-52.0); Hemoglobin 8.1 GM/DL (14.0-18.0); Immature Granulocytes % 2.1 %; Immature Granulocytes Absolute 0.13 #; Lymphocytes # 1.2 10*3/uL (1.4-4.0); Lymphocytes % 18.6 % (21.2-54.2); Mean Corpuscular HGB Conc 32.7 GM/DL (32-36); Mean Corpuscular Volume 84.4 FL (87-102); Monocytes % 5.8 % (1.7-12.7); Neutrophils % 73.2 % (38.7-73.9); Platelet Count 211 T/CUMM (130-400); Red Blood Count 2.94 MC/CUMM (3.8-5.5); Red Cell Distribution Width 16.6 % (9.3-17.3); White Blood Count 6.2 T/CUMM (4-12)
[2020-08-23 06:24] LABS: Albumin 1.3 G/DL (3.4-5.0); Bilirubin,Total 1.6 MG/DL (0.2-1.0); Calcium 7.3 MG/DL (8.5-10.1); Osmolality,Calculated 290.8 MOS/KG (273-304)
[2020-08-23 06:29] LABS: Band Neutrophils 25 % (0-10); Eosinophils 1 % (0-10); Lymphocytes 13 % (20-55); Segmented Neutrophils 58 % (50-85); Total Cells Counted 100
[2020-08-23 06:30] LABS: Anisocytosis 1+; Ovalocytes Few; Platelet Estimate Normal
[2020-08-23 06:38] LABS: Hematocrit 24.4 VOL% (42.0-52.0); Hemoglobin 8.1 GM/DL (14.0-18.0)
[2020-08-23] MEDS: PIPERACILLIN/TAZOBACTAM 3,375 MG in SODIUM CHLORIDE 0.9% 100 ML IV SCH ×3 (07:09→21:51)
[2020-08-23] MEDS: MULTIVITAMIN LIQUID (CENTRUM) 60 ML BOTTLE PO SCH (08:31)
[2020-08-23] MEDS: POTASSIUM PHOS/SOD PHOS 250 MG TABLET PO SCH ×4 (08:31→21:51)
[2020-08-23] MEDS: MEGESTROL 400 MG/10 ML UDCUP PO SCH ×2 (08:32→21:51)
[2020-08-23] MEDS: FOLIC ACID 0.4 MG TABLET NG SCH ×2 (08:32→21:51)
[2020-08-23] MEDS: THIAMINE 200 MG/2 ML VIAL IV SCH (08:32)
[2020-08-23] MEDS: ENOXAPARIN 40 MG/0.4 ML SYRINGE SUBCUT SCH (08:32)
[2020-08-23] MEDS: ASCORBIC ACID 500 MG TABLET NG SCH ×2 (08:32→21:51)
[2020-08-23] MEDS: FERRIC GLUCONATE COMPLEX 125 MG in SODIUM CHLORIDE 0.9% 100 ML IV SCH (11:05)
[2020-08-24] MEDS ORDERED: MORPHINE 4 MG/1 ML VIAL IV ONE (02:27)
[2020-08-24] MEDS ORDERED: METOPROLOL TARTRATE 5 MG/5 ML VIAL IV ONE (05:10)
[2020-08-24] MEDS: PIPERACILLIN/TAZOBACTAM 3,375 MG in SODIUM CHLORIDE 0.9% 100 ML IV SCH ×3 (05:25→21:24)
[2020-08-24 05:37] LABS: Basophils % 0.2 % (0.0-0.8); Eosinophils % 0.4 % (0.00-10.9); Hematocrit 24.9 VOL% (42.0-52.0); Hemoglobin 8.1 GM/DL (14.0-18.0); Immature Granulocytes % 1.9 %; Lymphocytes # 1.1 10*3/uL (1.4-4.0); Lymphocytes % 21.5 % (21.2-54.2); Mean Corpuscular HGB Conc 32.5 GM/DL (32-36); Mean Corpuscular Volume 84.7 FL (87-102); Mean Platelet Volume 11.3 FL (9.6-12.0); Platelet Count 256 T/CUMM (130-400); Red Blood Count 2.94 MC/CUMM (3.8-5.5); Red Cell Distribution Width 16.7 % (9.3-17.3); White Blood Count 5.2 T/CUMM (4-12)
[2020-08-24 05:53] LABS: Calcium 7.4 MG/DL (8.5-10.1); Osmolality,Calculated 283.1 MOS/KG (273-304)
[2020-08-24 07:22] LABS: Acanthocytes 1+; Band Neutrophils 2 % (0-10); Eosinophils 1 % (0-10); Hypochromasia 2+; Lymphocytes 22 % (20-55); Metamyelocytes 4 %; Myelocytes 3 %; Nucleated Red Blood Cells 1 (0-5); Platelet Estimate Normal; Segmented Neutrophils 63 % (50-85); Total Cells Counted 100
[2020-08-24] MEDS: ASCORBIC ACID 500 MG TABLET NG SCH ×2 (08:26→21:22)
[2020-08-24] MEDS: POTASSIUM PHOS/SOD PHOS 250 MG TABLET PO SCH ×4 (08:27→21:24)
[2020-08-24] MEDS: THIAMINE 200 MG/2 ML VIAL IV SCH (08:27)
[2020-08-24] MEDS: MEGESTROL 400 MG/10 ML UDCUP PO SCH ×2 (08:27→21:24)
[2020-08-24] MEDS: FOLIC ACID 0.4 MG TABLET NG SCH ×2 (08:27→21:23)
[2020-08-24] MEDS: MULTIVITAMIN LIQUID (CENTRUM) 60 ML BOTTLE PO SCH (08:27)
[2020-08-24] MEDS: ENOXAPARIN 40 MG/0.4 ML SYRINGE SUBCUT SCH (08:28)
[2020-08-24] MEDS: FERRIC GLUCONATE COMPLEX 125 MG in SODIUM CHLORIDE 0.9% 100 ML IV SCH (13:17)
[2020-08-25] MEDS: MULTIVITAMIN LIQUID (CENTRUM) 60 ML BOTTLE PO SCH (08:41)
[2020-08-25] MEDS: FOLIC ACID 0.4 MG TABLET NG SCH (08:42)
[2020-08-25] MEDS: MEGESTROL 400 MG/10 ML UDCUP PO SCH (08:42)
[2020-08-25] MEDS: ENOXAPARIN 40 MG/0.4 ML SYRINGE SUBCUT SCH (08:42)
[2020-08-25] MEDS: ASCORBIC ACID 500 MG TABLET NG SCH (08:42)
[2020-08-25] MEDS: POTASSIUM PHOS/SOD PHOS 250 MG TABLET PO SCH (08:42)
[2020-08-25] MEDS: THIAMINE 200 MG/2 ML VIAL IV SCH ×2 (08:43→10:26)
[2020-08-25] MEDS: FERRIC GLUCONATE COMPLEX 125 MG in SODIUM CHLORIDE 0.9% 100 ML IV SCH (10:24)
[2020-08-25 11:15] VITALS: BP 127/64
== END 2020-08-25 12:41 | DRG 981 ==
LOC: EDBD → EDUNIT# → N.EDINP 16:56 → N.ED 16:56 → N.4E 22:50 → SUATTDRO 08-13 12:07 → N.3E 08-14 17:46
PROVIDERS: ADMIT Internal Medicine; ATTEND Internal Medicine Geriatric Medicine